=== PATIENT | female | born 1970 | race Caucasian/White ===

== ENCOUNTER 2024-01-23 21:00 | Emergency (ER) | payer OTHER ==
[2024-01-23] MEDS ORDERED: LIDOCAINE 1% 20 ML MDV ONE (21:30)
[2024-01-23] MEDS ORDERED: TDAP (DIPHTH,PERTUSS(ACELL),TET VAC) 0.5 ML VIAL IMVAC ONE (21:31)
--- NOTE | 2024-01-23 22:23 | RAD REPORT ---
EXAM DESCRIPTION: CT - Facial Bones W/ Mpr - 01/23/2024 10:05 pm CLINICAL HISTORY: Facial injury with pain status post fall COMPARISON: None TECHNIQUE: Computed axial tomography of the face was obtained. Coronal and sagittal reconstruction w as performed. All CT scans are performed using dose optimization technique as appropriate and may include automated exposure control or mA/KV adjustment according to patient size. FINDINGS: A large right periorbital/right frontal scalp hematoma. It contains a small amount of air probably secondary to laceration. A fracture is not seen. Marked deviation the nasal septum presumably chronic A TMJ dislocation is not noted. The globes are intact. Fluid within the sinuses is not seen. IMPRESSION: Negative for a facial fracture.
--- NOTE | 2024-01-23 22:23 | RAD REPORT ---
EXAM DESCRIPTION: CT - Head Brain Wo Cont - 01/23/2024 10:05 pm CLINICAL HISTORY: Alteration of awareness/confusion COMPARISON: None TECHNIQUE: Computed axial tomography of the head was obtained. IV contrast was not requested. All CT scans are performed using dose optimization technique as appropriate and may include automated exposure control or mA/KV adjustment according to patient size. FINDINGS: Right supraorbital/right frontal scalp hematoma. Intracranial bleed not seen The ventricles are normal in caliber No extra-axial fluid collection is noted. No significant hypodensity within the brain noted. Fluid within the sinuses/ mastoids is not seen. IMPRESSION: No acute intracranial abnormality is seen If patient's symptoms persist MRI of the brain would be recommended
[2024-01-23] MEDS ORDERED: IBUPROFEN 400 MG TAB ONE (22:49)
[2024-01-23] MEDS ORDERED: HYDROCODONE/APAP 10/325 TAB ONE (22:50)
--- NOTE | 2024-01-23 23:44 | EDPHYS ---
Physician Documentation [facility] Name: Laurence Pantoja Age: 53 yrs Sex: Female : 1970 Arrival Date: 01/23/2024 Time: 21:00 Bed 19 Private MD: ED Physician Benjamin Quigley HPI: 01/22 21:15 This 53 yrs old Female presents to ER via Ambulatory with complaints of Fall sp4 Injury, Head Injury-Adult. 22:05 53-year-old female presents to the emergency room via private vehicle for acute head sp4 injury after a fall of the chair. Has moderate hematoma right supraorbital periorbital location with small laceration of the right eyebrow, Denied LOC . 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 - Infectious Disease History:: Denies. - Social history:: Smoking status: Reported history of juuling and/or vaping. Patient uses alcohol, but reports only rare drinking. - Family history:: not pertinent. ROS: 22:05 Constitutional: Negative for fever, chills, and weight loss, positive acute head sp4 injury, positive facial hematoma 22:05 All other systems are negative, Exam: 22:05 Constitutional: This is a well developed, well nourished patient who is awake, alert, sp4 and in no acute distress. Head/Face: Normocephalic, positive right supraorbital hematoma with right eyebrow laceration positive right periorbital contusion. Eyes: Pupils equal round and reactive to light, extra-ocular motions intact. Lids and lashes normal. Conjunctiva and sclera are not injected. Cornea within normal limits. Periorbital areas with no swelling, redness, or edema. ENT: Nares patent. No nasal discharge, no septal abnormalities noted. Tympanic membranes are normal and external auditory canals are clear. Oropharynx with no redness, swelling, or masses, exudates, or evidence of obstruction, uvula midline. Mucous membranes moist. Neck: Trachea midline, no thyromegaly or masses palpated, and no cervical lymphadenopathy. Supple, full range of motion without nuchal rigidity, or vertebral point tenderness. Chest/axilla: Normal chest wall appearance and motion. Nontender with no deformity. No lesions are appreciated. Cardiovascular: Regular rate and rhythm with a normal S1 and S2. No gallops, murmurs, or rubs. Normal PMI, no JVD. No pulse deficits. Respiratory: Lungs have equal breath sounds bilaterally, clear to auscultation and percussion. No rales, rhonchi or wheezes noted. No increased work of breathing, no retractions or nasal flaring. Abdomen/GI: Soft, with normal bowel sounds. No distension or tympany. No guarding or rebound. No evidence of tenderness throughout. Back: No spinal tenderness. No costovertebral tenderness. Skin: Warm, dry with normal turgor. Normal color with no rashes, no lesions, and no evidence of cellulitis. MS/ Extremity: Pulses equal, no cyanosis. Neurovascular intact. Full, normal range of motion. Neuro: Awake and alert, GCS 15, oriented to person, place, time, and situation. Cranial nerves II-XII grossly intact. Motor strength 5/5 in all extremities. Sensory grossly intact. Psych: Awake, alert, with orientation to person, place and time. Behavior, mood, and affect are within normal limits Vital Signs: 21:13 BP 167 / 91; Pulse 62; Resp 19; Temp 97.9(O); Pulse Ox 99% on R/A; Weight 77.11 kg; tm6 Height 5 ft. 3 in. ; Pain 5/10; 23:51 BP 145 / 91; Pulse 65; Resp 18; Temp 98; Pulse Ox 100% ; Pain 3/10; bm8 21:13 Body Mass Index 30.11 (77.11 kg, 160.02 cm) tm6 21:13 Pain Scale: Adult tm6 23:51 Pain Scale: Adult bm8 Sergio Coma Score: 21:16 Eye Response: spontaneous(4). Motor Response: obeys commands(6). Verbal Response: bm8 oriented(5). Total: 15. 22:05 Eye Response: spontaneous(4). Motor Response: obeys commands(6). Verbal Response: sp4 oriented(5). Total: 15. 23:51 Eye Response: spontaneous(4). Motor Response: obeys commands(6). Verbal Response: bm8 oriented(5). Total: 15. Laceration: 01/23 02:37 Wound Repair of 1cm ( 0.4in ) subcutaneous laceration to middle aspect of right sp4 eyebrow. Linear shaped.. Hemostasis noted.. Distal neuro/vascular/tendon intact. Anesthesia: Wound infiltrated with 5 mls of 1% lidocaine. Wound prep: Moderate cleansing by me, Copious irrigation. Skin closed with 3 6-0 Prolene using interrupted sutures and sterile technique. Dressed with Left to Air . Patient tolerated well. MDM: 01/22 21:21 Patient medically screened. sp4 23:28 ED course: EXAM DESCRIPTION: CT - Head Brain Wo Cont - 01/23/2024 10:05 pm CLINICAL sp4 HISTORY: Alteration of awareness/confusion COMPARISON: None TECHNIQUE: Computed axial tomography of the head was obtained. IV contrast was not requested. All CT scans are performed using dose optimization technique as appropriate and may include automated exposure control or mA/KV adjustment according to patient size. FINDINGS: Right supraorbital/right frontal scalp hematoma. Intracranial bleed not seen The ventricles are normal in caliber No extra-axial fluid collection is noted. No significant hypodensity within the brain noted. Fluid within the sinuses/ mastoids is not seen. IMPRESSION: No acute intracranial abnormality is seen If patient's symptoms persist MRI of the brain would be recommended. 01/23 02:37 Differential diagnosis: abrasion, closed head injury, laceration, multiple trauma. Data sp4 reviewed: vital signs, nurses notes, radiologic studies, CT scan. Consideration of Admission/Observation Escalation of care including admission/observation considered. ED course: Stable for discharge home.. 01/22 21:32 Order name: CT Facial Bones W/O Con sp4 01/22 21:32 Order name: CT Head Brain wo Cont sp4 01/22 21:34 Order name: Dressing - Wound; Complete Time: 21:37 sp4 01/22 21:34 Order name: Gloves, Sterile; Complete Time: 21:37 sp4 01/22 21:34 Order name: Setup Suture Tray; Complete Time: 21:37 sp4 Administered Medications: 01/22 21:37 Drug: Boostrix Tdap IM 0.5 ml IM once; as a single dose Route: IM; Site: right deltoid; bm8 21:45 Follow up: Response: No adverse reaction; lot [id number] exp 03/15/2026 bm8 23:00 Drug: Stowell PO 10 mg-325 mg 1 tabs PO once Route: PO; bm8 23:50 Follow up: Response: No adverse reaction bm8 23:00 Drug: Ibuprofen PO 800 mg PO once Route: PO; bm8 23:50 Follow up: Response: No adverse reaction bm8 23:20 Drug: Lidocaine Infiltration (1 %) 20 ml 20 ml Infiltration once; to bedside {Note: bm8 administered by provider.} Volume: 20 ml; Route: Infiltration; Site: affected area; Disposition Summary: 01/23/24 23:43 Discharge Ordered Notes: Location: Home sp4 Problem: new sp4 Symptoms: have improved sp4 Condition: Stable sp4 Diagnosis - Localized swelling, mass and lump, head sp4 - Acute head injury, right periorbital hematoma, right supraorbital hematoma, right sp4 eyebrow laceration, acute right facial contusion Followup: sp4 - With: Private Physician - When: 7 - 10 days - Reason: Recheck today's complaints Discharge Instructions: - Discharge Summary Sheet sp4 - Facial Laceration, [id number] sp4 Forms: - Patient Portal Instructions sp4 Prescriptions: - Tramadol 50 mg Oral tablet - take 1 tablet ORAL route every 8 hours as needed; 20 tablet; Refills: 0, sp4 Product Selection Permitted Signatures: Dispatcher [employer] Benjamin Zaragoza MD MD sp4 Arturo Barnett RN RN tm6 Parrish Tolbert RN RN bm8 Corrections: (The following items were deleted from the chart) 21:33 21:33 Head Brain Wo [id number] ordered. EDMS ED
--- NOTE | 2024-01-23 23:44 | ER ---
Nurse's Notes [facility] Name: Laurence Pantoja Age: 53 yrs Sex: Female : 1970 Arrival Date: 01/23/2024 Time: 21:00 Bed 19 Private MD: Diagnosis: Localized swelling, mass and lump, head;Acute head injury, right periorbital hematoma, right supraorbital hematoma, right eyebrow laceration, acute right facial contusion Presentation: 01/22 21:13 Chief complaint: Patient states: about 30 minutes ago, I was trying to hang something tm6 up in my house. The chair I was standing on slipped and I fell, hitting my head on the floor. I did not lose consciousness. Coronavirus screen: Vaccine status: Patient reports receiving the 2nd dose of the covid vaccine. Ebola Screen: Patient negative for fever greater than or equal to 101.5 degrees Fahrenheit, and additional compatible Ebola Virus Disease symptoms Patient denies exposure to infectious person. Patient denies travel to an Ebola-affected area in the 21 days before illness onset. No symptoms or risks identified at this time. Initial Sepsis Screen: Does the patient meet any 2 criteria? No. Patient's initial sepsis screen is negative. Does the patient have a suspected source of infection? No. Patient's initial sepsis screen is negative. Risk Assessment: Do you want to hurt yourself or someone else? Patient reports no desire to harm self or others. Onset of symptoms was January 23, 2024 at 20:30. 21:13 Method Of Arrival: Ambulatory tm6 21:13 Acuity: JUNIOR 3 tm6 Triage Assessment: 21:15 General: Appears in no apparent distress. uncomfortable, Behavior is calm, cooperative. tm6 Pain: Complains of pain in forehead and right eye Pain currently is 5 out of 10 on a pain scale. Pain began 30 min ago. EENT: Lid(s) right eye swollen. Neuro: Level of Consciousness is awake, alert, obeys commands, Oriented to person, place, time, situation. Cardiovascular: Patient's skin is warm and dry. Respiratory: Airway is patent Respiratory effort is even, unlabored, Respiratory pattern is regular, symmetrical. GI: No signs and/or symptoms were reported involving the gastrointestinal system. Abdomen is flat, non-distended. : No signs and/or symptoms were reported regarding the genitourinary system. Derm: Wound noted forehead and right eye Bruising that is dark purple. Musculoskeletal: Swelling present in forehead and right eye. 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 - Infectious Disease History:: Denies. - Social history:: Smoking status: Reported history of juuling and/or vaping. Patient uses alcohol, but reports only rare drinking. - Family history:: not pertinent. Screenin:16 [facility] ED Fall Risk Assessment (Adult) History of falling in the last 3 months, bm8 including since admission Yes- single mechanical fall (1 pt) Confusion or Disorientation No (0 pts) Intoxicated or Sedated No (0 pts) Impaired Gait No (0 pts) Mobility Assist Device Used No (0 pt) Altered Elimination No (0 pt) Score/Fall Risk Level 0 - 2 = Low Risk Oriented to surroundings, Maintained a safe environment, Educated pt \T\ family on fall prevention, incl call for assistance when getting out of bed, Assessed \T\ reinforced patient's understanding of fall precautions, Hourly rounding (assess needs \T\ fall precautionary measures) done, Used ambulatory aids as needed (educated on \T\ assisted with), Used gait belt as appropriate. Abuse screen: Denies threats or abuse. Nutritional screening: No deficits noted. Tuberculosis screening: No symptoms or risk factors identified. Assessment: 21:16 General: Appears in no apparent distress. uncomfortable, Behavior is calm, cooperative, bm8 appropriate for age. Pain: Complains of pain in right eye Pain currently is 6 out of 10 on a pain scale. Quality of pain is described as aching, throbbing. Neuro: No deficits noted. Level of Consciousness is awake, alert, obeys commands, Oriented to person, place, time, situation, Appropriate for age. Cardiovascular: Denies chest pain, Capillary refill < 3 seconds Patient's skin is warm and dry. Respiratory: Airway is patent Respiratory effort is even, unlabored, Respiratory pattern is regular, symmetrical. GI: No signs and/or symptoms were reported involving the gastrointestinal system. : No signs and/or symptoms were reported regarding the genitourinary system. EENT: No signs and/or symptoms were reported regarding the EENT system. Derm: Wound noted right eye and forehead Wound is swelling over right eye post fall Reports pain. Musculoskeletal: No signs and/or symptoms reported regarding the musculoskeletal system. 23:51 Reassessment: Patient appears in no apparent distress at this time. Patient and/or bm8 family updated on plan of care and expected duration. Pain level reassessed. Patient is alert, oriented x 3, equal unlabored respirations, skin warm/dry/pink. Patient states feeling better. Patient states symptoms have improved. Vital Signs: 21:13 BP 167 / 91; Pulse 62; Resp 19; Temp 97.9(O); Pulse Ox 99% on R/A; Weight 77.11 kg; tm6 Height 5 ft. 3 in. ; Pain 5/10; 23:51 BP 145 / 91; Pulse 65; Resp 18; Temp 98; Pulse Ox 100% ; Pain 3/10; bm8 21:13 Body Mass Index 30.11 (77.11 kg, 160.02 cm) tm6 21:13 Pain Scale: Adult tm6 23:51 Pain Scale: Adult bm8 [place] Coma Score: 21:16 Eye Response: spontaneous(4). Motor Response: obeys commands(6). Verbal Response: bm8 oriented(5). Total: 15. 22:05 Eye Response: spontaneous(4). Motor Response: obeys commands(6). Verbal Response: sp4 oriented(5). Total: 15. 23:51 Eye Response: spontaneous(4). Motor Response: obeys commands(6). Verbal Response: bm8 oriented(5). Total: 15. ED Course: 21:03 Patient arrived in ED. mr 21:15 Triage completed. tm6 21:15 Benjamin Quigley MD is Attending Physician. sp4 21:15 Arm band placed on right wrist. tm6 21:16 Parrish Tolbert, RN is Primary Nurse. bm8 21:16 Patient has correct armband on for positive identification. Bed in low position. Call bm8 light in reach. Side rails up X 1. Adult w/ patient. Client placed on continuous cardiac and pulse oximetry monitoring. NIBP monitoring applied. Pulse ox on. NIBP on. Door closed. Noise minimized. Warm blanket given. Pillow given. Verbal reassurance given. Head of bed lowered. 21:16 No provider procedures requiring assistance completed. Dressings: ice pack placed over bm8 right eye. 22:07 CT Facial Bones W/O Con In Process Unspecified. EDMS 22:07 CT Head Brain wo Cont In Process Unspecified. EDMS 23:51 Provided Education on: post er care. bm8 23:51 Patient did not have IV access during this emergency room visit. bm8 Administered Medications: 21:37 Drug: Boostrix Tdap IM 0.5 ml IM once; as a single dose Route: IM; Site: right deltoid; bm8 21:45 Follow up: Response: No adverse reaction; lot [id number] exp 03/15/2026 bm8 23:00 Drug: Higgins PO 10 mg-325 mg 1 tabs PO once Route: PO; bm8 23:50 Follow up: Response: No adverse reaction bm8 23:00 Drug: Ibuprofen PO 800 mg PO once Route: PO; bm8 23:50 Follow up: Response: No adverse reaction bm8 23:20 Drug: Lidocaine Infiltration (1 %) 20 ml 20 ml Infiltration once; to bedside {Note: bm8 administered by provider.} Volume: 20 ml; Route: Infiltration; Site: affected area; Medication: 21:44 Vaccine Information Statement (VIS) provided today. Questions and/or concerns bm8 addressed. VIS edition date: December 30, 2020. Intake: Outcome: 23:43 Discharge ordered by . [email or web address] 23:51 Discharged to home ambulatory, bm8 23:51 Condition: stable 23:51 Discharge instructions given to patient, Instructed on discharge instructions, follow up and referral plans. no drinking with medication, no driving heavy equipment, medication usage, Demonstrated understanding of instructions, follow-up care, medications, 23:54 Prescriptions given X 1, bm8 0830 00:04 Patient left the ED. bm8 Signatures: Dispatcher [employer] EDSD Claritza Dai, Reg Reg mr Benjamin Quigley MD MD spArturo Hicks RN RN tm6 Parrish Tolbert, RN RN bm8 Corrections: (The following items were deleted from the chart) 01/22 21:44 21:16 VIS not applicable for this client. bm8 bm8
[2024-01-24 00:29] VITALS: BP 145/91; TEMP 98; O2SAT 100
== END 2024-01-24 00:04 | disposition home or self-care (01) ==
LOC: ER 21:00
DX: S01.111A Laceration without foreign body of right eyelid and periocular area, initial encounter (principal)
CPT/HCPCS: 70450; 70486; 76377; 96372; 99284; 12011; J2001